=== PATIENT | female | born 1940 | race African-American/Black ===

== ENCOUNTER 2019-03-19 11:50 | Inpatient (IN) | payer MEDICARE, MEDICAID ==
[~2019-03-19] VITALS: Ht 127 cm; Wt 49.9 kg
[~2019-03-19 11:50] MED LIST: ASPI-986 PO
[2019-03-19] MEDS ORDERED: SODIUM CHLORIDE 0.9% 1,000 ML IV ONE ×3 (13:36→17:45)
[2019-03-19] MEDS ORDERED: LIDOCAINE HCL/PF 1% 2ML VIAL ONE (13:41)
[2019-03-19 14:33] LABS: BASOPHILS % 0.4 % (0.0-2.0); HEMATOCRIT. 34.5 % (36.0-48.0); HEMOGLOBIN. 10.8 g/dL (12.0-16.0); INR 1.1; LYMPHOCYTES % 9.8 % (20.0-50.0); MEAN CORPUSCULAR VOLUME 89.2 fL (81.0-99.0); MONOCYTES % 5.3 % (2.0-8.0); NEUTROPHILS % 84.5 % (40.0-76.0); PLATELET 312 x1000/uL (130-400); RED BLOOD CELL COUNT 3.86 mill/uL (4.2-5.4); RED CELL DISTRIBUTION WIDTH 14.3 % (11.6-14.6)
[2019-03-19 14:34] LABS: CHLORIDE 93 mEq/L (98-107)
[2019-03-19 15:27] LABS: BG BASE EXCESS -6.3 mmol/L (-2.0-2.0); BG CARBOXYHEMOGLOBIN 0.9 % (0.5-1.5); BG DEOXYHEMOGLOBIN 5.6 % (0.0-5.0); BG HCO3 ACT 18.3 mmol/L (22.0-26.0); BG OXYGEN SATURATION 94.3 % (92.0-98.5); BG OXYHEMOGLOBIN 93.5 % (94.0-97.0); BG PCO2 33.4 mmHg (35.0-45.0); BG PH 7.357 (7.350-7.450); BG PO2 75.1 mmHg (75.0-100.0); BG SAMPLE SITE RIGHT BRACHIAL; BG VENT MODE ROOM AIR
[2019-03-19 16:04] LABS: CLARITY URINE TURBID (CLEAR); COLOR URINE YELLOW (YELLOW); KETONES URINE 1+ (NEGATIVE); LEUKOCYTE ESTERASE URINE 3+ (NEGATIVE); NITRITE URINE NEGATIVE (NEGATIVE); OCCULT BLOOD URINE 3+ (NEGATIVE); PROTEIN URINE 2+ (NEGATIVE); UROBILINOGEN URINE 0.2 E.U./dL (0.2-1.0)
[2019-03-19] MEDS ORDERED: CEFTRIAXONE 1 G PREMIX 50 ML IV ONE (17:15)
[2019-03-19] MEDS ORDERED: INSULIN REGULAR (HUMULIN R) 300UNITS/3ML SUBCUT ONE (17:15)
[2019-03-19] MEDS ORDERED: ASPIRIN 325MG TABLET PO ONE (17:30)
[2019-03-19] MEDS ORDERED: SODIUM CHLORIDE 0.9% 1,000 ML IV SCH (19:19)
[2019-03-19] MEDS ORDERED: MAGNESIUM/ALUMINUM HYDROXIDE/SIMETHICONE 30ML UDC PO PRN (19:30)
[2019-03-19] MEDS ORDERED: HYDROCODONE/ACETAMINOPHEN 5/325MG TABLET PO PRN (19:30)
[2019-03-19] MEDS ORDERED: DOCUSATE SODIUM 100MG CAPSULE PO PRN (19:30)
[2019-03-19] MEDS ORDERED: DIPHENHYDRAMINE 50MG/ML VIAL IV PRN (19:30)
[2019-03-19] MEDS ORDERED: CLONIDINE 0.1MG TABLET PO PRN (19:30)
[2019-03-19] MEDS ORDERED: GUAIFENESIN 200MG/10ML SUGAR FREE UDC PO PRN (19:30)
[2019-03-19] MEDS ORDERED: ACETAMINOPHEN 325MG TABLET PO PRN (19:30)
[2019-03-19] MEDS ORDERED: IPRATROPIUM/ALBUTEROL 0.5-3(2.5)MG/3ML NEB INH PRN (19:30)
[2019-03-19] MEDS ORDERED: ONDANSETRON HCL 4MG/2ML INJ IV PRN (19:30)
[2019-03-19 20:06] LABS: PHOSPHORUS 3.5 mg/dL (2.5-4.9)
[2019-03-19 22:00] VITALS: BP_SYST 124; BP_SYST 125; BP_DIAS 32; BP_DIAS 46
[2019-03-19] MEDS ORDERED: FLUCONAZOLE 100MG TABLET PO NR (22:30)
[2019-03-19] MEDS ORDERED: ENOXAPARIN 30MG/0.3ML SYR SUBCUT SCH (22:45)
[2019-03-20] VITALS: BP 125/34
[2019-03-20 00:46] LABS: CREATINE KINASE MB FRACTION 1.1 ng/mL (0.5-3.6)
[2019-03-20] MEDS ORDERED: DEXTROSE 50% WATER 50ML SYRINGE IV PRN ×2 (01:45→04:30)
[2019-03-20 04:00] VITALS: BP 112/35
[2019-03-20] MEDS: BLOOD SUGAR DIAGNOSTIC STRIP TEST SCH ×6 (04:00→22:15)
[2019-03-20] MEDS: INSULIN LISPRO 100 UNITS/ML SUBCUT SCH ×5 (05:37→20:00)
[2019-03-20 05:59] LABS: CHLORIDE 104 mEq/L (98-107)
[2019-03-20 06:11] LABS: CREATINE KINASE 658 IU/L (26-192); HDL CHOLESTEROL 21 mg/dL (40-59); LDL CHOLESTEROL 85 mg/dL (5-100)
[2019-03-20 06:18] LABS: HEMATOCRIT. 31.3 % (36.0-48.0); HEMOGLOBIN. 10.3 g/dL (12.0-16.0); MEAN CORPUSCULAR HEMOGLOBIN 28.4 pg (28.0-32.0); MEAN CORPUSCULAR VOLUME 86.7 fL (81.0-99.0); MEAN PLATELET VOLUME 9.2 fl (7.4-10.4); PLATELET 280 x1000/uL (130-400); RED BLOOD CELL COUNT 3.61 mill/uL (4.2-5.4); RED CELL DISTRIBUTION WIDTH 14.3 % (11.6-14.6)
[2019-03-20 06:20] LABS: CREATINE KINASE MB FRACTION < 1.0 ng/mL (0.5-3.6)
[2019-03-20] MEDS ORDERED: SODIUM CHLORIDE 0.9% 1,000 ML IV SCH (06:30)
[2019-03-20] MEDS ORDERED: BLOOD SUGAR DIAGNOSTIC STRIP TEST SCH (06:45)
[2019-03-20] MEDS ORDERED: INSULIN LISPRO 100 UNITS/ML SUBCUT SCH (07:15)
[2019-03-20 08:00] VITALS: BP 94/19
[2019-03-20] MEDS ORDERED: DEXT 5%/0.9% NACL KCL 20MEQ/L 1,000 ML IV ONE (11:30)
[2019-03-20 12:00] VITALS: BP 151/38
[2019-03-20 12:45] LABS: PLATELET ESTIMATE NORMAL
[2019-03-20 12:51] LABS: CREATINE KINASE 924 IU/L (26-192)
[2019-03-20] MEDS ORDERED: CEFTRIAXONE 1 G PREMIX 50 ML IV SCH (14:00)
[2019-03-20] MEDS: FLUCONAZOLE 50MG TABLET PO SCH (15:12)
[2019-03-20 16:00] VITALS: BP 144/37
[2019-03-20] MEDS ORDERED: CARV6.2548 PO (19:17)
[2019-03-20] MEDS ORDERED: MYCOC15 TOP (19:18)
[2019-03-20] MEDS ORDERED: ASA5EC PO (19:40)
[2019-03-20] MEDS ORDERED: INSU200I4 SQ (19:40)
[2019-03-20] MEDS ORDERED: FURO40TA5 PO (19:41)
[2019-03-20] MEDS ORDERED: PIOG30TA70 PO (19:41)
[2019-03-20] MEDS ORDERED: GLIM2TAB2 PO (19:42)
[2019-03-20 20:00] VITALS: BP 117/31
[2019-03-20] MEDS ORDERED: ENOXAPARIN 40MG/0.4ML SYR SUBCUT SCH (21:00)
[2019-03-21] VITALS: BP 124/33
[2019-03-21 04:00] VITALS: BP 132/21
[2019-03-21] MEDS: BLOOD SUGAR DIAGNOSTIC STRIP TEST SCH ×5 (04:00→20:54)
[2019-03-21] MEDS: INSULIN LISPRO 100 UNITS/ML SUBCUT SCH ×6 (04:00→20:00)
[2019-03-21 08:00] VITALS: BP 126/33
[2019-03-21 09:35] LABS: BASOPHILS % 0.6 % (0.0-2.0); EOSINOPHILS % 0.5 % (0.0-5.0); HEMATOCRIT. 32.5 % (36.0-48.0); HEMOGLOBIN. 10.3 g/dL (12.0-16.0); LYMPHOCYTES % 12.7 % (20.0-50.0); MEAN PLATELET VOLUME 8.5 fl (7.4-10.4); MONOCYTES % 6.7 % (2.0-8.0); NEUTROPHILS % 79.5 % (40.0-76.0); PLATELET 286 x1000/uL (130-400); RED BLOOD CELL COUNT 3.69 mill/uL (4.2-5.4); RED CELL DISTRIBUTION WIDTH 14.5 % (11.6-14.6)
[2019-03-21 12:00] VITALS: BP 121/29
[2019-03-21 15:16] LABS: ANTI-NUCLEAR ANTIBODIES DIRECT Negative (Negative)
[2019-03-21] MEDS: FLUCONAZOLE 50MG TABLET PO SCH (15:33)
[2019-03-21] MEDS: CEFTRIAXONE 1 G PREMIX 50 ML IV SCH (15:34)
[2019-03-21 16:00] VITALS: BP 157/23
[2019-03-21 20:00] VITALS: BP 121/50
[2019-03-21] MEDS: ENOXAPARIN 30MG/0.3ML SYR SUBCUT SCH (21:42)
[2019-03-22] VITALS (7 sets, daily range): BP systolic 84–148; BP diastolic 30–80
[2019-03-22] MEDS: BLOOD SUGAR DIAGNOSTIC STRIP TEST SCH ×6 (04:00→20:00)
[2019-03-22] MEDS: INSULIN LISPRO 100 UNITS/ML SUBCUT SCH ×6 (04:00→20:00)
[2019-03-22 07:20] LABS: COMPLEMENT C3 132 mg/dL (82-167)
[2019-03-22 07:58] LABS: BASOPHILS % 0.5 % (0.0-2.0); EOSINOPHILS % 2.4 % (0.0-5.0); HEMOGLOBIN. 10.4 g/dL (12.0-16.0); LYMPHOCYTES % 21.8 % (20.0-50.0); MEAN CORPUSCULAR HEMOGLOBIN 28.5 pg (28.0-32.0); MEAN CORPUSCULAR VOLUME 88.3 fL (81.0-99.0); MEAN PLATELET VOLUME 8.6 fl (7.4-10.4); MONOCYTES % 9.3 % (2.0-8.0); PLATELET 289 x1000/uL (130-400); RED BLOOD CELL COUNT 3.63 mill/uL (4.2-5.4); RED CELL DISTRIBUTION WIDTH 14.6 % (11.6-14.6)
[2019-03-22] MEDS: CEFTRIAXONE 1 G PREMIX 50 ML IV SCH (15:16)
[2019-03-22] MEDS ORDERED: APIX5TAB MT (16:56)
[2019-03-22] MEDS ORDERED: FLUC100T42 MT (16:56)
[2019-03-22] MEDS ORDERED: NITR-87 MT (16:56)
[2019-03-22] MEDS: FLUCONAZOLE 50MG TABLET PO SCH (18:15)
[2019-03-22] MEDS: ENOXAPARIN 30MG/0.3ML SYR SUBCUT SCH (21:00)
[2019-03-23] VITALS: BP_SYST 104; BP_SYST 99; BP_DIAS 26; BP_DIAS 72
== END 2019-03-23 01:22 | disposition home or self-care (01) | DRG 637 ==
LOC: ER 11:50 → 5WST 18:27 → EDBEDREQ 18:30 → EDBEDREQTM 18:30 → ENRESERV 20:49 → 8WST 03-21 18:04
PROVIDERS: ADMIT Internal Medicine; ATTEND Internal Medicine
DX: E11.10 Type 2 diabetes mellitus with ketoacidosis without coma (principal); L89.153 Pressure ulcer of sacral region, stage 3; E87.1 Hypo-osmolality and hyponatremia; N17.9 Acute kidney failure, unspecified; B37.49 Other urogenital candidiasis; I13.0 Hypertensive heart and chronic kidney disease with heart failure and stage 1 through stage 4 chronic kidney disease, or unspecified chronic kidney disease; R65.10 Systemic inflammatory response syndrome (SIRS) of non-infectious origin without acute organ dysfunction; I82.513 Chronic embolism and thrombosis of femoral vein, bilateral; E11.22 Type 2 diabetes mellitus with diabetic chronic kidney disease; N18.9 Chronic kidney disease, unspecified; E11.36 Type 2 diabetes mellitus with diabetic cataract; R62.7 Adult failure to thrive; I50.9 Heart failure, unspecified; B37.9 Candidiasis, unspecified; D64.9 Anemia, unspecified; E11.51 Type 2 diabetes mellitus with diabetic peripheral angiopathy without gangrene; Z79.4 Long term (current) use of insulin; Z89.511 Acquired absence of right leg below knee; Z89.512 Acquired absence of left leg below knee; Z86.73 Personal history of transient ischemic attack (TIA), and cerebral infarction without residual deficits; Z89.611 Acquired absence of right leg above knee; Z89.612 Acquired absence of left leg above knee; Z79.82 Long term (current) use of aspirin; Z68.30 Body mass index [BMI] 30.0-30.9, adult
CPT/HCPCS: 36415; 36600; 71045; 76770; 80048; 80061; 82375; 82550; 82553; 82805; 82962; 83036; 83605; 83735; 83880; 84100; 84134; 84443; 84484; 86038; 86160; 87077; 87186; 87493; 93005; 93306; 93970; 96365; 96366; 99285; A6261; C1893; J0696; J1650; J1815; J3490; J7030; A4315

== ENCOUNTER 2020-09-21 12:01 | Emergency (ER) | payer MEDICARE, MEDICAID ==
[~2020-09-21] VITALS: Ht 170.2 cm; Wt 56.0 kg
[~2020-09-21 12:01] MED LIST changes: +APIX5TAB MT; -ASPI-986 PO; +CARV6.2548 PO; +FLUC100T42 MT; +FURO40TA5 PO; +GLIM2TAB30 PO; +INSU200I4 SQ; +MYCOC15 TOP; +NITR-87 MT; +PIOG30TA70 PO
[2020-09-21] MEDS ORDERED: ONDANSETRON HCL 4MG/2ML INJ IV STA (12:46)
[2020-09-21] MEDS ORDERED: SODIUM CHLORIDE 0.9% 1,000 ML IV ONE (13:00)
[2020-09-21 13:08] LABS: HEMATOCRIT. 35.7 % (36.0-48.0); HEMOGLOBIN. 11.4 g/dL (12.0-16.0); MEAN CORPUSCULAR HEMOGLOBIN 27.4 pg (28.0-32.0); MEAN CORPUSCULAR VOLUME 86.2 fL (81.0-99.0); MEAN PLATELET VOLUME 8.2 fl (7.4-10.4); PLATELET 170 x1000/uL (130-400); RED BLOOD CELL COUNT 4.14 mill/uL (4.2-5.4); RED CELL DISTRIBUTION WIDTH 16.8 % (11.6-14.6)
[2020-09-21 13:15] LABS: CHLORIDE 107 mEq/L (98-107)
[2020-09-21 13:19] LABS: INR 1.2
[2020-09-21 14:04] LABS: PLATELET ESTIMATE NORMAL
[2020-09-21] MEDS ORDERED: ASPIRIN 325MG TABLET PO NR (18:15)
[2020-09-21] MEDS ORDERED: AZITHROMYCIN 500 MG in DEXT 5% WATER 250 ML IV SCH (19:00)
[2020-09-21] MEDS ORDERED: CEFTRIAXONE 1 G PREMIX 50 ML IV ONE (19:00)
[2020-09-21] MEDS ORDERED: FUROSEMIDE 100MG/10ML VIAL IVP ONE (19:00)
[2020-09-22] MEDS ORDERED: FUROSEMIDE 100MG/10ML VIAL IVP SCH (02:00)
[2020-09-22] MEDS ORDERED: CEFTRIAXONE 1 G PREMIX 50 ML IV SCH (02:00)
[2020-09-22 06:51] VITALS: BP 114/40
== END 2020-09-22 07:10 | disposition short-term general hospital (02) ==
LOC: ER 12:01
DX: I11.0 Hypertensive heart disease with heart failure (principal); I50.9 Heart failure, unspecified; I21.A1 Myocardial infarction type 2; Z20.828 Contact with and (suspected) exposure to other viral communicable diseases; E11.65 Type 2 diabetes mellitus with hyperglycemia; D68.9 Coagulation defect, unspecified; D72.819 Decreased white blood cell count, unspecified; D64.9 Anemia, unspecified; I69.351 Hemiplegia and hemiparesis following cerebral infarction affecting right dominant side; Z89.612 Acquired absence of left leg above knee; Z89.611 Acquired absence of right leg above knee; Z79.4 Long term (current) use of insulin; Z79.899 Other long term (current) drug therapy
CPT/HCPCS: 36415; 71045; 80053; 83690; 83880; 84484; 85025; 85610; 87426; 87635; 93005; 96361; 96365; 96367; 96375; 99285; C9803; J0456; J0696; J1940; J2405; J7030; J7060